=== PATIENT | male | born 1945 | race Caucasian/White ===

== ENCOUNTER 2017-05-11 09:44 | Emergency (ER) | payer MEDICARE, OTHER ==
[2017-05-11 10:00] VITALS: BP 140/77
--- NOTE | 2017-05-11 10:15 | UC ---
Respiratory Complaint HPI - HPI Summary HPI Summary: Patient presents with a past medical history of HTN, and Hyper-cholesterolemia. He presents today with complaints of sinus pain, pressure, with pain in his upper teeth, thick green nasal discharge, and PND, with associated cough,he states is worse at night-time. He states the symptoms began on 05.05.17, and he has been using Nasacort with temporary relief. He denies any fever, chills, headache, double vision, neck pain, chest congestion, nausea, vomiting, or diarrhea, joint apin, or rash. - History of Current Complaint Chief Complaint: UCGeneralIllness Stated Complaint: SINUS PRESSURE, COUGH, DENTAL PAIN Time Seen by Provider: 05/11/17 09:58 Hx Obtained From: Patient Onset/Duration: Gradual Onset, Lasting Weeks Timing: Constant Severity Initially: Mild Severity Currently: Moderate Character: Cough: Nonproductive Aggravating Factors: Exertion, Recumbent Position Alleviating Factors: OTC Meds, Upright Position, Spontaneous Resolution Associated Signs And Symptoms: Positive: Negative, URI, Nasal Congestion, Sinus Discomfort - Risk Factors Pulmonary Embolism Risk Factors: Negative Cardiac Risk Factors: Negative Pseudomonas Risk Factors: Negative Tuberculosis Risk Factors: Negative - Allergies/Home Medications Allergies/Adverse Reactions: Allergies Allergy/AdvReac Type Severity Reaction Status Date / Time No Known Allergies Allergy Verified 05/11/17 10:00 Home Medications: Home Medications Atorvastatin* [Lipitor 20 MG*] 20 mg PO DAILY 05/11/17 [History Confirmed ] Ibuprofen [Ibuprofen 200 MG] 400 mg PO Q6HR PRN 05/11/17 [History Confirmed ] Lisinopril 10 mg PO DAILY 05/11/17 [History Confirmed 05/11/17] Triamcinolone NASAL SPRAY* [Nasacort Aq Nasal Planada*] 1 spray NASAL DAILY [History Confirmed 05/11/17] PMH/Surg Hx/FS Hx/Imm Hx Previously Healthy: Yes Endocrine History: Dyslipidemia Cardiovascular History: Hypertension - Surgical History Surgical History: Yes Surgery Procedure, Year, and Place: cyst on neck - Family History Known Family History: Positive: Cardiac Disease, Hypertension - Social History Occupation: Employed Full-time Lives: Alone Alcohol Use: Daily Alcohol Amount: 1-2 drinks Substance Use Type: None Smoking Status (MU): Never Smoked Tobacco - Immunization History Most Recent Influenza Vaccination: 03/2017 Review of Systems Constitutional: Fatigue Skin: Negative Eyes: Negative ENT: Nasal Discharge, Sinus Congestion, Sinus Pain/Tenderness Respiratory: Negative Cardiovascular: Negative Gastrointestinal: Negative Genitourinary: Negative Motor: Negative Neurovascular: Negative Musculoskeletal: Negative Neurological: Negative Psychological: Negative Is Patient Immunocompromised?: No All Other Systems Reviewed And Are Negative: Yes Physical Exam Triage Information Reviewed: Yes Appearance: Well-Appearing Vital Signs: Initial Vital Signs Temp 97.6 F 05/11/17 09:55 Pulse 82 05/11/17 09:55 Resp 16 05/11/17 09:55 BP 140/77 05/11/17 09:55 Pulse Ox 95 05/11/17 09:55 Vital Signs Reviewed: Yes Eye Exam: Normal ENT: Positive: Pharynx normal, Nasal congestion, Nasal drainage, Sinus tenderness Neck exam: Normal Neck: Positive: 1 Respiratory: Positive: Normal breath sounds, No respiratory distress, No accessory muscle use Cardiovascular Exam: Normal Skin Exam: Normal UC Diagnostic Evaluation - Laboratory O2 Sat by Pulse Oximetry: 95 Respiratory Course/Dx - Course Course Of Treatment: Patient presents with 2 week onset progressively worsening sinus pain, pressure, pain in upper dentician, thick green nasal discharge, and PND. He has tenderness over the maxillary sinuses on palpation. His VSS, he has a nontoxic appearance, and was aferile. He presents clinically with maxillary sinusitis and is going to be treated with Biaxin 500 mg by mouth twice daily, and Prednisone 20 mg twice daily for five days. If for any reason his symtpoms worsen or persist and do not improve as anticipated he was told to follow up with his PCP. - Differential Dx/Diagnosis Differential Diagnosis/HQI/PQRI: Sinusitis Provider Diagnoses: sinusitis Discharge - Discharge Plan Condition: Stable Disposition: HOME Prescriptions: Clarithromycin TAB* [Biaxin 500 MG TAB*] 500 mg PO BID #20 tab predniSONE TAB* [Deltasone TAB*] 20 mg PO BID #10 tab Patient Education Materials: Sinusitis (ED) Referrals: Suhail Santos MD [Primary Care Provider] -
== END 2017-05-11 10:14 | disposition home or self-care (01) ==
LOC: UCEAST 09:44
DX: J32.0 Chronic maxillary sinusitis (principal); I10 Essential (primary) hypertension; E78.00 Pure hypercholesterolemia, unspecified; K08.89 Other specified disorders of teeth and supporting structures
CPT/HCPCS: 99212; G0463

== ENCOUNTER 2017-11-12 14:12 | Emergency (ER) | payer MEDICARE, OTHER ==
[2017-11-12 14:29] VITALS: BP 172/90
--- NOTE | 2017-11-12 14:55 | UC ---
Back Pain HPI - HPI Summary HPI Summary: Woke up two days ago feeling normal, but developed severe pain within 10 steps of getting up and bearing weight. Denies any memorable injuries or prior surgeries on L hip/low back. Full sensation, denies weakness or tingling. Feels better if he can sit in a soft chair or lie down, worse with being vertical ( standing or walking). - History of Current Complaint Chief Complaint: UCLowerExtremity Stated Complaint: HIP/LEG PAIN Time Seen by Provider: 11/12/17 14:42 Hx Obtained From: Patient Onset/Duration: Sudden Onset, Lasting Days Timing: Constant Severity Initially: Moderate Severity Currently: Moderate Pain Intensity: 5 Character: Sharp Aggravating Factor(s): Walking Alleviating Factor(s): Rest, Position Associated Signs And Symptoms: Negative: Weakness, Numbness, Tingling - Allergies/Home Medications Allergies/Adverse Reactions: Allergies Allergy/AdvReac Type Severity Reaction Status Date / Time No Known Allergies Allergy Verified 11/12/17 14:30 PMH/Surg Hx/FS Hx/Imm Hx Cardiovascular History: Hypertension - Surgical History Surgical History: Yes Surgery Procedure, Year, and Place: cyst on neck - Family History Known Family History: Positive: Cardiac Disease, Hypertension - Social History Lives: With Family Alcohol Use: Daily Alcohol Amount: 1-2 drinks Substance Use Type: None Smoking Status (MU): Never Smoked Tobacco - Immunization History Most Recent Influenza Vaccination: 03/2017 Review of Systems Constitutional: Negative Skin: Negative Eyes: Negative ENT: Negative Respiratory: Negative Cardiovascular: Negative Gastrointestinal: Negative Genitourinary: Negative Motor: Negative Neurovascular: Negative Musculoskeletal: Arthralgia, Myalgia Neurological: Negative Psychological: Negative Is Patient Immunocompromised?: No All Other Systems Reviewed And Are Negative: Yes Physical Exam Triage Information Reviewed: Yes Appearance: Pain Distress - lying in bed, Obese Vital Signs: Initial Vital Signs Temp 97.9 F 11/12/17 14:26 Pulse 63 11/12/17 14:26 Resp 12 11/12/17 14:26 BP 172/90 11/12/17 14:26 Pulse Ox 96 11/12/17 14:26 Vital Signs Reviewed: Yes Eye Exam: Normal Eyes: Positive: Conjunctiva Clear ENT Exam: Normal ENT: Positive: Normal ENT inspection, Hearing grossly normal, Pharynx normal, TMs normal Dental Exam: Normal Neck exam: Normal Neck: Positive: Supple, Nontender, No Lymphadenopathy Respiratory Exam: Normal Respiratory: Positive: Chest non-tender, Lungs clear, Normal breath sounds, No respiratory distress, No accessory muscle use Cardiovascular Exam: Normal Cardiovascular: Positive: RRR, No Murmur Musculoskeletal: Positive: Strength Intact - bilat LE strength symmetric, including inversion/eversion, ROM Intact Neurological Exam: Other - full sensation on legs, feet, ankles Neurological: Positive: Alert, Muscle Tone Normal Psychological Exam: Normal Skin Exam: Normal Back Pain Course/Dx - Differential Dx/Diagnosis Provider Diagnoses: Low back pain. L leg pain. Elevated blood pressure due to pain Discharge - Sign-Out/Discharge Documenting (check all that apply): Discharge/Admit/Transfer - Discharge Plan Condition: Stable Disposition: HOME Patient Education Materials: Lumbar Radiculopathy (ED) Referrals: Suhail Santos MD [Primary Care Provider] - 2 Days Additional Instructions: Follow up with Dr. Santos's office to discuss further medication, physical therapy , and possible imaging. - Billing Disposition and Condition Condition: STABLE Disposition: Home
[2017-11-12] MEDS ORDERED: HYDROcodone/ACETAMIN 5-325 MG* 1 TAB PO ONE (14:56)
--- NOTE | 2017-11-12 16:02 | RAD ---
Indication: Pelvic pain. Single view of the pelvis demonstrates pelvic ring to be intact. No fracture is identified. There may be some degenerative changes of the sacroiliac joint. IMPRESSION: Degenerative changes sacroiliac joint without fracture.
--- NOTE | 2017-11-12 16:03 | RAD ---
Indication: Back pain. 5 views of lumbar spine are reviewed. The vertebral bodies appear normal in height. Disc space narrowing at L3-L4, L4-L5 is noted. IMPRESSION: Multilevel degenerative disc disease without evidence of fracture.
== END 2017-11-12 15:58 | disposition home or self-care (01) ==
LOC: UCEAST 14:12
DX: M54.5 Low back pain (principal); M79.605 Pain in left leg
CPT/HCPCS: 72110; 72170; 99212; G0463